=== PATIENT | male | born 1980 | race Hispanic/Latino ===

== ENCOUNTER 2020-08-18 14:00 | Emergency (ER) | payer OTHER ==
[~2020-08-18] VITALS: Ht 162.6 cm; Wt 82.0 kg
[~2020-08-18 14:00] MED LIST: DOXYCYCL HYC100 MG PO; IBUPROFEN600 MG PO
[2020-08-18 17:38] VITALS: BP 128/79
== END 2020-08-18 17:38 | disposition home or self-care (01) | DRG 552 ==
LOC: ED 14:00
DX: S16.1XXA Strain of muscle, fascia and tendon at neck level, initial encounter (principal); S29.012A Strain of muscle and tendon of back wall of thorax, initial encounter; V54.5XXA Driver of pick-up truck or van injured in collision with heavy transport vehicle or bus in traffic accident, initial encounter; Y99.0 Civilian activity done for income or pay